=== PATIENT | female | born 1955 | race Caucasian/White ===

== ENCOUNTER 2018-08-11 08:53 | Outpatient (CLI) | payer OTHER ==
--- NOTE | 2018-08-11 10:45 | BD ---
DEXA BONE DENSITY: HISTORY: A 63-year-old postmenopausal female. COMPARISON: None. FINDINGS: Lumbar Spine: BMD (g/cm2) L1 1.273 T-Score: 2.2, 3.8 L2 1.251 T-Score: 2.0, 3.7 L3 1.218 T-Score: 1.2, 3.0 L4 1.209 T-Score: 1.3, 3.2 L1-L4 1.228 T-Score: 1.6, 3.3 Femoral Neck: 0.791 T-Score: -0.5, 0.9 Total Femur: 1.050 T-Score: 0.9, 2.1 Impression: Lumbar Spine: WHO classification is normal. Fracture risk is not increased. Femoral Neck: WHO classification is normal. Ten-year fracture risk: fracture not reported because all T-scores are at or above -1. POS: ANI
== END 2018-08-11 08:54 | disposition home or self-care (01) ==
LOC: BICMAMMO 08:53
PROVIDERS: ATTEND Obstetrics & Gynecology
DX: Z12.31 Encounter for screening mammogram for malignant neoplasm of breast (principal); Z13.820 Encounter for screening for osteoporosis; N95.1 Menopausal and female climacteric states
CPT/HCPCS: 77063; 77067; 77080

== ENCOUNTER 2019-04-26 17:00 | Outpatient (CLI) | payer OTHER | END 2019-04-26 17:01 | disposition home or self-care (01) | LOC: SLEEPLAB 17:00 | PROVIDERS: ATTEND Dentist General Practice | DX: G47.33 Obstructive sleep apnea (adult) (pediatric) (principal); G47.00 Insomnia, unspecified | CPT/HCPCS: 95806 ==

== ENCOUNTER 2020-01-24 12:08 | Outpatient (CLI) | payer MEDICARE ==
[~2020-01-24 12:08] MED LIST: Magnevist 469MG/ML 20 ML VIAL ONE
--- NOTE | 2020-01-24 13:48 | MRI ---
MRI BRAIN AND ORBITS WITH AND WITHOUT CONTRAST: DATE: 01/24/2020 HISTORY: 64-year-old female with H 53.40 central visual field disturbance, and headache TECHNIQUE: Multiplanar, multisequence MRI of the brain obtained pre and post IV injection of gadolinium based co ntrast agent. Whole brain sequences and thin slice coronal and axial sequences through the orbits. FINDINGS: The ventricles are normal in size and configuration. There is no midline shift or any other evidence of mass effect. There is no extra-axial fluid collection. Tiny right frontal centrum semiovale T2 hyperintense focus, consistent with minimal chronic ischemic white matter change, not unusual for thi s age group. There is no other intra-axial signal abnormality, abnormal enhancement, mass, recent hemorrhage, or restricted diffusion. Ocular lenses are bilaterally absent. Bilateral globes are amaya l in size and shape, and signal, with no abnormal enhancement. Bilateral optic nerves are symmetrical, with no evidence of abnormal enhancement or edema. Extraocular muscles are symmetrically normal. No suprasellar mass. No impingement on optic chiasm. No signal abnormality in the optic tracts. Cavernous sinuses are normal. No suprasellar mass or abnormal enhancement. No intraorbital ma ss. IMPRESSION: 1. Status post Bilateral cataract surgery. 2. Otherwise essentially normal. And
== END 2020-01-24 12:09 | disposition home or self-care (01) ==
LOC: MRI 12:08
PROVIDERS: ATTEND Ophthalmology Retina Specialist
DX: H53.40 Unspecified visual field defects (principal)
CPT/HCPCS: 70553; 82565; A9579

== ENCOUNTER 2020-09-24 08:31 | Outpatient (CLI) | payer MEDICARE ==
--- NOTE | 2020-09-25 10:52 | MMO ---
Bilateral MAMMO Bilat Screen [facility]. CLINICAL HISTORY: Patient is 65 years old and is seen for screening. The patient has no family history of breast cancer. The patient has no personal history of cancer. The patient has a history of left Excisional Biopsy at age 19 - benign - multiple. VIEWS: The views performed were: bilateral craniocaudal with tomosynthesis and bilateral mediolateral oblique with tomosynthesis. FILMS COMPARED: The present examination has been compared to prior imaging studies performed at [facility] on 08/16/2019, and at [facility] on 11/05/2015, 11/10/2016 and 08/11/2018. This study has been interpreted with the assistance of computer-aided detection. MAMMOGRAM FINDINGS: There are scattered fibroglandular densities. There are benign appearing calcifications seen in both breasts. There are no suspicious masses, suspicious calcifications, or new areas of architectural distortion. IMPRESSION: THERE IS NO MAMMOGRAPHIC EVIDENCE OF MALIGNANCY. A ROUTINE FOLLOW-UP MAMMOGRAM IN 1 YEAR IS RECOMMENDED. THE RESULTS OF THIS EXAM WERE SENT TO THE PATIENT. ACR BI-RADS Category 2 - Benign finding MAMMOGRAPHY NOTE: 1. A negative mammogram report should not delay a biopsy if a dominant of clinically suspicious mass is present. 2. Approximately 10% to 15% of breast cancers are not detected by mammography. 3. Adenosis and dense breasts may obscure an underlying neoplasm. Reported by: LULU SUAREZ MD Electonically Signed: [id number]
== END 2020-09-24 08:32 | disposition home or self-care (01) ==
LOC: BICMAMMO 08:31
DX: Z12.31 Encounter for screening mammogram for malignant neoplasm of breast (principal)
CPT/HCPCS: 77063; 77067